=== PATIENT | male | born 1970 | race Caucasian/White ===

== ENCOUNTER 2016-12-01 10:49 | Emergency (ER) | payer MEDICARE ==
[2016-12-01 11:14] VITALS: BP 128/69; PULSE 100; TEMP 97.5; BMI 29.9
--- NOTE | 2016-12-01 11:24 | EDPRACDOC ---
- General Information Chief Complaint: Medication Refill Stated Complaint: MED REFILL Time Seen by Provider: 12/01/16 11:09 Information Source: Patient Mode Of Arrival: Car Home Medications: Home Medications Acyclovir 800 mg PO 5XD #35 tablet 09/01/14 Petrolatum [Lacri-Lube] 3.5 gm OP QHS #1 tube 09/01/14 Diazepam [Valium] 5 mg PO TID #15 tablet 09/19/16 Prednisone [Deltasone, Orasone] 20 mg PO BID #14 tab 09/19/16 Alprazolam [Xanax] 1 mg PO .QID-SEE COMMENTS PRN #14 tablet 12/01/16 Hydrocodone Bit/Acetaminophen [[place] 5-325 Tablet] 1 each PO Q6H PRN #21 tab 10/07 Allergies/Adverse Reactions: Allergies Allergy/AdvReac Type Severity Reaction Status Date / Time No Known Allergies Allergy Verified 02/13/15 09:11 - History of Present Illness Duration Without Medication: today HPI: PT PRESENTS TODAY REQUESTING REFILLS ON XANAX AND NORCO. PT FOLLOWS DR. FUAD MCCANN PCP. IT WAS CONFIRMED YESTERDAY THAT DR. MCCANN' MOTHER HAS AND HIS OFFICE HAS BEEN SENDING HIS PTS HERE FOR MEDICATION REFILLS. Context: Reports: Ran out of Medication Medication for: Reports: Pain, Psychiatric Pain: Reports: None ED Past Medical History - History Reviewed Yes Nurses notes reviewed and agree except as marked - Patient Medical History Psychological History: Denies: Depression - Social Medical History Smoking Status: Heavy tobacco smoker (5 or more cigarettes/day or daily pipe/ cigar) EDM Review of Systems - Review of Systems ROS Negative Except as Marked: Yes All systems reviewed and were negative except as marked Constitutional: No Symptoms Reported Respiratory: No Symptoms Reported Cardiovascular: No Symptoms Reported Gastrointestinal: No Symptoms Reported Neurological: No Symptoms Reported Musculoskeletal: No Symptoms Reported Integumentary: No Symptoms Reported - Physical Exam Constitutional: Alert (Awake), No apparent distress Oriented to: Time, Person, Place Last recorded Vital Signs: Last Vital Signs Temp 97.5 F 12/01/16 11:13 Pulse 100 12/01/16 11:13 Resp 20 12/01/16 11:13 BP 128/69 12/01/16 11:13 Pulse Ox 96 12/01/16 11:13 Oxygen Pulse Oxygen Saturation 96 O2 Device Room Air Oxygen Flow Rate Fraction of Inspired Oxygen ( FIO2) - HEENT Head: Normal Eye Exam: Normal Neck: Normal, Denies Pain, Midline - Respiratory/Cardiovascular Respiratory: Normal - CTA Cardiovascular: Normal - GI Palpation: Normal Tenderness: Non tender - Musculoskeletal Back: Normal Extremities: Normal - Integumentary Skin: Normal Lymphatics: Normal - Neurologic Cerebellar: Normal Mood Description: Normal Thought: Coherent Perception: Normal Decision Time to Discharge: 11:21 - Departure Disposition: Home Condition: Good Final Diagnosis: Medication refill Instructions: Medication Refill Education/Counseling Given To: Patient Education/Counseling Given Regarding: Diagnosis, Treatment, Follow Up Referrals: None,No Provider [Primary Care Provider] - One Week Prescriptions: Alprazolam [Xanax] 1 mg PO .QID-SEE COMMENTS PRN #14 tablet PRN Reason: Anxiety Hydrocodone Bit/Acetaminophen [[place] 5-325 Tablet] 1 each PO Q6H PRN #21 tab PRN Reason: Pain Forms: Primary / Family Care Contact Additional Instructions: FOLLOW UP WITH PCP FOR FURTHER REFILLS
== END 2016-12-01 11:39 | disposition home or self-care (01) ==
LOC: EDMC 10:49
DX: Z76.0 Encounter for issue of repeat prescription (principal)
CPT/HCPCS: 99282